=== PATIENT | female | born 1980 | race Caucasian/White ===

== ENCOUNTER 2017-07-20 10:14 | Emergency (ER) | payer OTHER | END 2017-07-20 11:25 | disposition home or self-care (01) | LOC: E/R 11:25 | DX: M79.605 Pain in left leg (principal); I10 Essential (primary) hypertension | CPT/HCPCS: 73562; 73590; 99283-25 ==

== ENCOUNTER 2018-03-13 09:24 | Emergency (ER) | payer SELFPAY, OTHER ==
[2018-03-13] MEDS: ALBUTEROL 0.083% (NEB) 2.5 MG/3 ML AMP HHN (10:01)
[2018-03-13] MEDS: DEXAMETHASONE 10 MG/ML 1 ML INJ IM (10:01)
[2018-03-13] MEDS: IPRATROPIUM (NEB) 0.5 MG/2.5 ML AMP HHN (10:01)
== END 2018-03-13 10:41 | disposition home or self-care (01) ==
LOC: FTE 09:24
DX: R05 Cough (principal); I10 Essential (primary) hypertension
CPT/HCPCS: 71045; 94664; 96372; 99284-25